=== PATIENT | male | born 1940 | race Caucasian/White ===

== ENCOUNTER 2017-01-08 04:35 | Observation (INO) | payer MEDICARE ==
[2017-01-08] VITALS (8 sets, daily range): BP systolic 123–158; BP diastolic 69–82; PULSE 65–75; RESP 16–18; TEMP 96.3–97.7; O2SAT 94–98
[~2017-01-08] VITALS: Ht 180.3 cm; Wt 106.5 kg
[~2017-01-08 04:35] MED LIST: ASPI81 PO; CALC600T34 PO; CARD8TAB6 PO; FISH1000 PO; GLYB2.5T3 PO; METHY10 PO; OMEP20CA5 PO; PRIN5TAB PO; ROSU40 PO; VITA500T10 PO
[2017-01-08] MEDS ORDERED: SODIUM CHLORIDE 0.9% FLUSH 5 ML FLUSH IVF PRN ×3 (06:30→09:00)
[2017-01-08] MEDS ORDERED: ASPIRIN 325 MG TAB PO ONE (06:30)
[2017-01-08] MEDS ORDERED: MORPHINE SULFATE 4 MG/ML INJ IV PUSH ONE (06:30)
[2017-01-08 06:43] LABS: AUTOMATED NEUTROPHIL # 7.5 TH/MM3 (1.8-7.7); BASOPHIL # 0.1 TH/MM3 (0-0.2); BASOPHIL % 0.7 % (0.0-2.0); EOSINOPHIL # 0.1 TH/MM3 (0-0.4); EOSINOPHIL % 1.3 % (0.0-4.0); HEMATOCRIT 47.8 % (39.0-51.0); HEMO FLAGS DIFF FINAL; LYMPH % 18.5 % (9.0-44.0); MEAN CELL VOLUME 91.8 FL (80.0-100.0); MEAN CORPUSCULAR HEMOGLOBIN 31.6 PG (27.0-34.0); MEAN CORPUSCULAR HGB CONC 34.4 % (32.0-36.0); MONO % 10.3 % (0.0-8.0); NEUT % 69.2 % (16.0-70.0); PLATELET COUNT 194 TH/MM3 (150-450); RED BLOOD COUNT 5.21 MIL/MM3 (4.50-5.90); RED CELL DISTRIBUTION WIDTH 13.6 % (11.6-17.2); WHITE BLOOD COUNT 10.9 TH/MM3 (4.0-11.0)
--- NOTE | 2017-01-08 06:43 | RADRPT ---
EXAM DATE/TIME: 01/08/2017 06:21 [facility] COMPARISON: CHEST SINGLE AP, December 17, 2013, 19:28. INDICATIONS : Chest pain. MEDICAL HISTORY : None. SURGICAL HISTORY : None. ENCOUNTER: Initial ACUITY: 1 day PAIN SCORE: 2/10 LOCATION: Left chest FINDINGS: A single view of the chest demonstrates the lungs to be symmetrically aerated without evidence of mas s, infiltrate or effusion. The cardiomediastinal contours are unremarkable. Osseous structures are intact. Calcified granuloma right midlung. CONCLUSION: No acute disease. Trey Michael MD on January 08, 2017 at 6:42 Board Certified Radiologist. This report was verified electronically.
--- NOTE | 2017-01-08 06:47 | PD ---
HPI Chief Complaint: Chest Pain Time Seen by Provider: 06:16 Travel History International Travel<30 days: No Contact w/Intl Traveler<30days: No Traveled to known affect area: No History of Present Illness HPI 76-year-old male arrives to the ER complaining of left-sided chest pain. Onset occurred at rest. He states it is mild. He has no shortness of breath. There is no radiation. He has a history of one stent. He takes no Plavix. Baby aspirin is listed on his formulary. No cough or fever lately. Duration a few hours. He follows with Dr. Ding. 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 PFSH Past Medical History Cancer: Yes (SKIN CANCERS ([place])) Cardiovascular Problems: Yes (2 STENTS) High Cholesterol: Yes Diabetes: Yes Patient Takes Glucophage: Yes Diminished Hearing: Yes ([place]) Glaucoma: No Hepatitis: No Hiatal Hernia: No Hypertension: Yes Thyroid Disease: No Past Surgical History Abdominal Surgery: No Cardiac Surgery: Yes (CARDIAC STENTS) Ear Surgery: No Endocrine Surgery: No Eye Surgery: No Genitourinary Surgery: No Gynecologic Surgery: No Oral Surgery: No Pacemaker: No Thoracic Surgery: No Other Surgery: Yes Social History Alcohol Use: No Tobacco Use: No Substance Use: No Allergies-Medications (Allergen,Severity, Reaction): Coded Allergies: No Known Allergies (Verified , 01/08/17) Reported Meds & Prescriptions Reported Meds & Active Scripts Active Reported Ritalin (Methylphenidate HCl) 10 Mg Tab 10 Mg PO DAILY@1600 Glyburide 2.5 Mg Tab 2.5 Mg PO DAILYAC Fish Oil 1,000 Mg Cap 1,000 Mg PO DAILY Calcium 600 Mg Tab 600 Mg PO Vitamin C (Ascorbic Acid) 500 Mg Tab 500 Mg PO DAILY Prilosec (Omeprazole) 20 Mg Capcr 20 Mg PO DAILY Aspirin 81 Mg Tab 81 Mg PO DAILY Crestor (Rosuvastatin Calcium) 40 Mg Tab 40 Mg PO DAILY Cardura (Doxazosin Mesylate) 8 Mg Tab 8 Mg PO DAILY Prinivil (Lisinopril) 5 Mg Tab 5 Mg PO DAILY Review of Systems Except as stated in HPI: all other systems reviewed are Neg Physical Exam Narrative GENERAL: 76-year-old male pleasant well-nourished well-developed SKIN: Warm and dry. HEAD: Atraumatic. Normocephalic. EYES: Pupils equal and round. No scleral icterus. No injection or drainage. ENT: No nasal bleeding or discharge. Mucous membranes pink and moist. NECK: Trachea midline. No JVD. CARDIOVASCULAR: Regular rate and rhythm. No murmur appreciated. No chest wall tenderness. RESPIRATORY: No accessory muscle use. Clear to auscultation. Breath sounds equal bilaterally. GASTROINTESTINAL: Abdomen soft, non-tender, nondistended. Hepatic and splenic margins not palpable. MUSCULOSKELETAL: No obvious deformities. No clubbing. No cyanosis. No edema. NEUROLOGICAL: Awake and alert. No obvious cranial nerve deficits. Motor grossly within normal limits. Normal speech. PSYCHIATRIC: Appropriate mood and affect; insight and judgment normal. Data Data Last Documented VS Vital Signs Date Time Temp Pulse Resp B/P Pulse Ox O2 Delivery O2 Flow Rate FiO2 01/08/17 06:40 16 96 Room Air 01/08/17 06:40 142/76 158/80 01/08/17 04:38 97.7 73 Vital signs reviewed Orders Electrocardiogram (01/08/17 ) Electrocardiogram (01/08/17 06:16) Basic Metabolic Panel (Bmp) (01/08/17 06:16) Ckmb (Isoenzyme) Profile (01/08/17 06:16) Complete Blood Count With Diff (01/08/17 06:16) Magnesium (Mg) (01/08/17 06:16) Prothrombin Time / Inr (Pt) (01/08/17 06:16) Act Partial Throm Time (Ptt) (01/08/17 06:16) Troponin I (01/08/17 06:16) Chest, Single Ap (01/08/17 06:16) Ecg Monitoring (01/08/17 06:16) Bilateral Bp Monitoring (01/08/17 06:16) Iv Access Insert/Monitor (01/08/17 06:16) Oximetry (01/08/17 06:16) Oxygen Administration (01/08/17 06:16) Aspirin (Aspirin) (01/08/17 06:30) Morphine Inj (Morphine Inj) (01/08/17 06:30) Sodium Chloride 0.9% Flush (Ns Flush) (01/08/17 06:30) MDM Medical Decision Making Medical Screen Exam Complete: Yes Emergency Medical Condition: Yes Medical Record Reviewed: Yes Differential Diagnosis NSTEMI, unstable angina, coronary vasospasm, PE, PTX, aortic dissection, pericarditis, myocarditis, endocarditis, PNA, esophageal disease, aneurysm, musculoskeletal etiologies, anxiety, cocaine/sympathomimetic abuse Narrative Course EKG reveals a sinus rhythm of [address] changes in inferior leads not consistent with STEMI Oncoming provider to follow up the results of blood work, re-examine and disposition patient appropriately. Chest pain center admission considered likely. Giuseppe Mcfadden MD Jan 08, 2017 06:47
[2017-01-08 06:52] LABS: APTT (PATIENT) 27.1 SEC (24.3-30.1); PROTHROMBIN TIME - PATIENT 11.4 SEC (9.8-11.6)
[2017-01-08] MEDS ORDERED: LISI-519 PO (07:08)
[2017-01-08] MEDS ORDERED: GLIM4TAB PO (07:08)
[2017-01-08] MEDS ORDERED: DOXA1TAB43 PO (07:10)
[2017-01-08] MEDS ORDERED: ROSU40 PO (07:10)
[2017-01-08] MEDS ORDERED: DONE5TAB7 PO (07:10)
[2017-01-08 07:12] LABS: ANION GAP 8 MEQ/L (5-15); BICARBONATE 24.2 MEQ/L (21.0-32.0); BLOOD UREA NITROGEN 24 MG/DL (7-18); CHLORIDE 105 MEQ/L (98-107); CREATINE KINASE 140 U/L (39-308); GLOMERULAR FILTRATION RATE 52 ML/MIN (>89); MAGNESIUM 2.4 MG/DL (1.5-2.5); POTASSIUM 4.7 MEQ/L (3.5-5.1); SODIUM (NA) 137 MEQ/L (136-145)
--- NOTE | 2017-01-08 07:16 | PD ---
Physical Exam Narrative Received sign out from previous team to follow up labs and likely chest pain center admission. 76yo M with PMH of NIDDM, HTN, HLD, CAD s/p cardiac stent 10 years ago here with left sided chest pain. Chest pain is intermittent and is now almost resolved. EKG showed Q wave III, aVF and TWI aVL. Pt given aspirin and morphine by previous team. Labs reviewed, no leukocytosis. Troponin negative. Glucose 141. BUN/creatinine elevated at 24/1.33 but this is at baseline compared to previous labs. CXR showed no acute disease. 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 Will admit to chest pain center for serial EKG and cardiac enzyme. Data Data Last Documented VS Vital Signs Date Time Temp Pulse Resp B/P Pulse Ox O2 Delivery O2 Flow Rate FiO2 01/08/17 06:40 16 96 Room Air 01/08/17 06:40 142/76 158/80 01/08/17 04:38 97.7 73 Orders Electrocardiogram (01/08/17 ) Basic Metabolic Panel (Bmp) (01/08/17 06:16) Ckmb (Isoenzyme) Profile (01/08/17 06:16) Complete Blood Count With Diff (01/08/17 06:16) Magnesium (Mg) (01/08/17 06:16) Prothrombin Time / Inr (Pt) (01/08/17 06:16) Act Partial Throm Time (Ptt) (01/08/17 06:16) Troponin I (01/08/17 06:16) Chest, Single Ap (01/08/17 06:16) Ecg Monitoring (01/08/17 06:16) Bilateral Bp Monitoring (01/08/17 06:16) Iv Access Insert/Monitor (01/08/17 06:16) Oximetry (01/08/17 06:16) Oxygen Administration (01/08/17 06:16) Aspirin (Aspirin) (01/08/17 06:30) Morphine Inj (Morphine Inj) (01/08/17 06:30) Sodium Chloride 0.9% Flush (Ns Flush) (01/08/17 06:30) CKMB (01/08/17 06:25) CKMB% (01/08/17 06:25) Admit Order (Ed Use Only) (01/08/17 07:16) Activity Bed Rest With Brp (01/08/17 07:16) Vital Signs (Adult) Q4H (01/08/17 07:16) Cardiac Rhythm .As Directed (01/08/17 07:16) ^ Notify Dr: Other .PRN (01/08/17 07:16) ^ Notify Dr. Parameters (01/08/17 07:16) Resp Oxygen Nasal Cannula (01/08/17 ) ^ Obtain (01/08/17 07:16) Sodium Chloride 0.9% Flush (Ns Flush) (01/08/17 07:30) Sodium Chloride 0.9% Flush (Ns Flush) (01/08/17 09:00) Needle Grinder / Telemetry ROGER.Q8H (01/08/17 07:16) Labs Laboratory Tests Test 01/08/17 06:25 White Blood Count 10.9 TH/MM3 Red Blood Count 5.21 MIL/MM3 Hemoglobin 16.5 GM/DL Hematocrit 47.8 % Mean Corpuscular Volume 91.8 FL Mean Corpuscular Hemoglobin 31.6 PG Mean Corpuscular Hemoglobin 34.4 % Concent Red Cell Distribution Width 13.6 % Platelet Count 194 TH/MM3 Mean Platelet Volume 9.2 FL Neutrophils (%) (Auto) 69.2 % Lymphocytes (%) (Auto) 18.5 % Monocytes (%) (Auto) 10.3 % Eosinophils (%) (Auto) 1.3 % Basophils (%) (Auto) 0.7 % Neutrophils # (Auto) 7.5 TH/MM3 Lymphocytes # (Auto) 2.0 TH/MM3 Monocytes # (Auto) 1.1 TH/MM3 Eosinophils # (Auto) 0.1 TH/MM3 Basophils # (Auto) 0.1 TH/MM3 CBC Comment DIFF FINAL Differential Comment Prothrombin Time 11.4 SEC Prothromb Time International 1.0 RATIO Ratio Activated Partial 27.1 SEC Thromboplast Time Sodium Level 137 MEQ/L Potassium Level 4.7 MEQ/L Chloride Level 105 MEQ/L Carbon Dioxide Level 24.2 MEQ/L Anion Gap 8 MEQ/L Blood Urea Nitrogen 24 MG/DL Creatinine 1.33 MG/DL Estimat Glomerular Filtration 52 ML/MIN Rate Random Glucose 141 MG/DL Calcium Level 9.2 MG/DL Magnesium Level 2.4 MG/DL Total Creatine Kinase 140 U/L Creatine Kinase MB 1.6 NG/ML Troponin I LESS THAN 0.02 NG/ML MDM Supervised Visit with MACIE: No Diagnosis Primary Impression: Chest pain Qualified Code: R07.9 - Chest pain, unspecified type Admitting Information Admitting Physician Requests: Batsheva Jiang DO Jan 08, 2017 07:16
[2017-01-08 07:24] LABS: CKMB 1.6 NG/ML (0.5-3.6)
[2017-01-08] MEDS ORDERED: NITROGLYCERIN 0.4 MG SL 25 TABS/BTL SL PRN (09:00)
[2017-01-08] MEDS ORDERED: ASPIRIN 325 MG TAB PO SCH (09:00)
[2017-01-08] MEDS ORDERED: ACETAMINOPHEN 500 MG CPLT PO PRN (09:00)
[2017-01-08] MEDS ORDERED: SODIUM CHLORIDE 0.9% FLUSH 5 ML FLUSH IVF SCH ×2 (09:00)
[2017-01-08] MEDS ORDERED: ONDANSETRON HCL 4 MG/2 ML VIAL IV PRN (09:00)
[2017-01-08] MEDS ORDERED: amLODIPine BESYLATE 5 MG TAB PO ONE (09:15)
[2017-01-08 10:24] LABS: CREATINE KINASE 100 U/L (39-308)
[2017-01-08] MEDS ORDERED: ATORVASTATIN 80 MG TAB PO SCH (14:00)
[2017-01-08] MEDS ORDERED: LISINOPRIL 5 MG TAB PO SCH (14:00)
[2017-01-08] MEDS ORDERED: DOXAZOSIN MESYLATE 4 MG TAB PO SCH (14:00)
--- NOTE | 2017-01-08 14:57 | HHI.HP ---
[facility] Primary Care Physician Juan Dign MD Chief Complaint Chest pain History of Present Illness 76-year-old man with known diabetes, hypertension, hyperlipidemia, and CAD. States he was awoken at 3:30 this morning with chest pain. Location left anterior chest, no radiation, severity was a 6 out of 10, currently he continues to have pain 6 out of 10 this pain has not changed in intensity. Characteristic is "soreness" no associated symptoms, no precipitating or relieving factors. He denies ever having chest pain in the past. No recent illness or known trauma. Review of Systems General: No fatigue,weakness, fever, chills, or recent illness change in appetite HEENT: No NEIL, no vision changes, no nasal congestion or drainage, no dysphasia CV: CP has stated above. No Palpitations, intermittent leg pain, dizziness RESP: No SOB, cough, wheeze, hemoptysis, asthma, no recent illness or upper respiratory infection GI: No nausea or vomiting, bowel changes, diarrhea, constipation, pain, distention, melena, blood in the stool. No change in appetite, no unintentional weight gain or weight loss, reports a good appetite : No dysuria, urgency, frequency, hematuria, or history of kidney stones EXT: No lower leg edema, no parathesias MS: No discomfort or change in ROM NEURO: Mild change in memory his primary care provider is monitoring this, no dizziness, difficulty with balance, LOC, motor/sensory deficits PSYCH: No anxiety, depression SKIN: No rashes, no concerning lesions Past Family Social History Allergies: Coded Allergies: No Known Allergies (Verified , 01/08/17) Past Medical History Diabetes, hypertension, hyperlipidemia, one cardiac stent placed 10 years ago, dementia Past Surgical History None Reported Medications Lisinopril 5 mg daily Aricept 5 mg daily Crestor 40 mg daily at bedtime Multivitamin Vitamin E daily Doxazosin 8mg daily Family History Father from massive heart attack at age 50. Mother at age 48 from breast cancer. He is an only child. Social History He is a lifelong nonsmoker, denies alcohol or illegal drug use. He has hypertension, diabetes, hyperlipidemia although takes medication for all of the above. 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 Physical Exam Vital Signs Vital Signs Date Time Temp Pulse Resp B/P Pulse Ox O2 Delivery O2 Flow Rate FiO2 01/08/17 10:46 66 18 148/73 98 Nasal Cannula 2 01/08/17 08:50 98 Nasal Cannula 2.00 01/08/17 06:40 16 96 Room Air 01/08/17 06:40 96 Room Air 01/08/17 06:40 142/76 158/80 01/08/17 04:38 97.7 73 16 150/82 94 Physical Exam GENERAL: Alert WN, WD, NAD, pleasant HEAD: NC, AT EYES: Sclera clear, conjunctiva without injection, pupils equal and round ENT: Mucous membranes pink and moist, no nasal discharge or bleeding NECK: Supple, no masses, trachea midline CV: RRR, without murmur, rub, gallop, no JVD, S1-S2 no S3-S4. No carotid bruits RESP: Clear lungs throughout bilateral, no crackles, wheeze, rhonchi, symmetrical chest rise, nonlabored, able to speak in full sentences ABD: Soft, NT, ND, no masses, positive bowel tones BACK: No CVAT, no scoliosis EXT: Pulses +24, no dependent edema MS: Normal tone 4 extremities, nontender, no obvious deformities, full range of motion NEURO: CN II through CN XII grossly intact, motor strength 5/5 PSYCH: A+O 3, pleasant affect, appropriate speech, appropriate mood and affect , insight and judgment SKIN: Normal turgor, normal texture, no lesions, no rashes, warm and dry Laboratory Laboratory Tests Test 01/08/17 01/08/17 06:25 09:27 White Blood Count 10.9 Red Blood Count 5.21 Hemoglobin 16.5 Hematocrit 47.8 Mean Corpuscular Volume 91.8 Mean Corpuscular Hemoglobin 31.6 Mean Corpuscular Hemoglobin 34.4 Concent Red Cell Distribution Width 13.6 Platelet Count 194 Mean Platelet Volume 9.2 Neutrophils (%) (Auto) 69.2 Lymphocytes (%) (Auto) 18.5 Monocytes (%) (Auto) 10.3 Eosinophils (%) (Auto) 1.3 Basophils (%) (Auto) 0.7 Neutrophils # (Auto) 7.5 Lymphocytes # (Auto) 2.0 Monocytes # (Auto) 1.1 Eosinophils # (Auto) 0.1 Basophils # (Auto) 0.1 CBC Comment DIFF FINAL Differential Comment Prothrombin Time 11.4 Prothromb Time International 1.0 Ratio Activated Partial 27.1 Thromboplast Time Sodium Level 137 Potassium Level 4.7 Chloride Level 105 Carbon Dioxide Level 24.2 Anion Gap 8 Blood Urea Nitrogen 24 Creatinine 1.33 Estimat Glomerular Filtration 52 Rate Random Glucose 141 Calcium Level 9.2 Magnesium Level 2.4 Total Creatine Kinase 140 100 Creatine Kinase MB 1.6 Troponin I LESS THAN 0.02 LESS THAN 0.02 Result Diagram: 01/08/1762401/08/17624 Imaging Last Impressions Chest X-Ray 01/08/17615 Signed Impressions: Service Date/Time: Sunday, January 08, 2017 06:21 - CONCLUSION: No acute disease. Trey Michael MD Assessment and Plan Assessment and Plan #1 Chest pain-patient has been admitted to the chest pain center he will be ruled out with 3 sets of EKGs and cardiac enzymes. She was seen and evaluated by Dr. Ashley Bernardo. Ham Sawyer discussed with patient and his whom is at bedside that the next step would be for him to have a chemical stress test. He is agreeable to this plan of care. Naturally if his chemical stress test is unremarkable he will be later discharged this evening. #2 Hypertension-amlodipine 5 mg 1 dose. Will continue to monitor patient's blood pressure. Discussed the likelihood with patient and his of possibly going home with a blood pressure medication. Discussed the importance of follow -up with primary care provider and to keep a blood pressure log and to take with them to next primary care appointment. Tracie Gonzalez Jan 08, 2017 14:57 Tracie Gonzalez Jan 08, 2017 14:57
[2017-01-08 15:07] LABS: CREATINE KINASE 183 U/L (39-308)
[2017-01-08] MEDS ORDERED: REGADENOSON INJ 0.4 MG/5 ML SYR ONE (15:07)
[2017-01-08 15:19] LABS: CKMB 1.2 NG/ML (0.5-3.6)
--- NOTE | 2017-01-08 16:24 | RADRPT ---
EXAM DATE/TIME: 01/08/2017 14:34 [facility] COMPARISON: No previous studies available for comparison. INDICATIONS : Left chest pain for 1 day. Angina. DOSE: 35.0 mCi Tc99m Myoview at stress. 10.9 mCi Tc99m Myoview at rest. 0.4 mg Lexiscan STRESS SYMPTOMS: Nausea. EJECTION FRACTION: 63% MEDICAL HISTORY : Hypertension. Diabetes mellitus type 2. SURGICAL HISTORY : Coronary artery stent. Total knee replacement, left. Total knee replacement, right. ENCOUNTER: Initial ACUITY: 1 day PAIN SCALE: 3/10 LOCATION: Left chest TECHNIQUE: The patient underwent pharmacologic stress with infusion of prescribed dose. Continuous ECG tracing was monitored during stress. Gated SPECT imaging was performed after stress and conventional SPECT i maging was performed at rest. The examination was performed on a SPECT/CT scanner, both attenuation and non-corrected datasets were reviewed. FINDINGS: The gated Cine loop images demonstrate no focal wall motion abnormality. The left ventricular ejecti on fraction is calculated at 63%. The cardiac SPECT stress and rest images demonstrate no fixed or reversible defects to suggest infarc t or ischemia. CONCLUSION: No infarct, ischemia, or focal wall motion abnormality. Left ventricular ejection fraction is calcula anita at 63%. RISK CATEGORY: Low risk (less than 1% annual mortality rate). Danny Magallanes MD on January 08, 2017 at 16:18 Board Certified Radiologist. This report was verified electronically.
--- NOTE | 2017-01-08 16:44 | HHI.DCPOC ---
Discharge Care Plan Diagnosis: (1) Atypical chest pain (2) Hypertension Goals to Promote Your Health * To prevent worsening of your condition and complications * To maintain your health at the optimal level Directions to Meet Your Goals Take your medications as prescribed Follow your dietary instruction Follow activity as directed Keep your appointments as scheduled Take your immunizations and boosters as scheduled If your symptoms worsen call your PCP, if no PCP go to Urgent Care Center or Emergency Room Smoking is Dangerous to Your Health. Avoid second hand smoke Call the 24-hour hour crisis hotline for domestic abuse at Tracie Gonzalez Jan 08, 2017 16:44
--- NOTE | 2017-01-08 16:51 | EKG ---
Date Performed: 01/08/2017 Time Performed: 10:40:13 PTAGE: 76 years EKG: Sinus rhythm WITH FIRST DEGREE AV BLOCK MODERATE INTRAVENTRICULAR CONDUCTION DELAY NONSPECIFIC T-WAVE ABNORMALITY ABNORMAL ECG Since PREVIOUS TRACING , no significant change noted PREVIOUS TRACIN01/08/2017 04.45 DOCTOR: Ashley Bernardo Interpretating Date/Time 01/08/2017 16:51:04
--- NOTE | 2017-01-08 16:54 | EKG ---
Date Performed: 01/08/2017 Time Performed: 04:45:14 PTAGE: 76 years EKG: Sinus rhythm INFERIOR MYOCARDIAL INFARCTION ABNORMAL ECG Since PREVIOUS TRACING , no significant change noted PREVIOUS TRACIN12/17/2013 19.17 DOCTOR: Ashley Bernardo Interpretating Date/Time 01/08/2017 16:53:25
[2017-01-08] MEDS ORDERED: AMLO2.5T PO (16:57)
--- NOTE | 2017-01-09 16:10 | TR ---
Date Performed: 01/08/2017 Time Performed: 15:13:16 DOCTOR: Nacho Bryan DRUG LIST: CLINICAL HISTORY: ANGINA REASON FOR TEST: Angina REASON FOR ENDING: OBSERVATION: CONCLUSION: Lexiscan stress test was performed under standard four minute protocol. [place] e was injected one minute prior to ending the test. No electrocardiographic abormalities were present to suggest ischemia. Nuclear imaging and interpretation are pending. COMMENTS:
== END 2017-01-08 18:13 | disposition home or self-care (01) ==
LOC: NEPE 04:35 → NEDA 07:24 → NEPHCDU 15:25
PROVIDERS: ADMIT Internal Medicine Interventional Cardiology; ATTEND Internal Medicine Interventional Cardiology
DX: R07.89 Other chest pain (principal); I10 Essential (primary) hypertension; E78.00 Pure hypercholesterolemia, unspecified; E11.9 Type 2 diabetes mellitus without complications; I25.10 Atherosclerotic heart disease of native coronary artery without angina pectoris; Z95.5 Presence of coronary angioplasty implant and graft; Z79.82 Long term (current) use of aspirin; Z85.820 Personal history of malignant melanoma of skin; Z82.49 Family history of ischemic heart disease and other diseases of the circulatory system; Z80.3 Family history of malignant neoplasm of breast
CPT/HCPCS: 71010; 78452; 80048; 82550; 82552; 83735; 84484; 85025; 85610; 85730; 93005; 93017; 96374; 99285; A9502; G0378; J2270; J2785

== ENCOUNTER 2018-03-19 09:45 | Day surgery (SDC) | payer MEDICARE ==
[~2018-03-19] VITALS: Ht 177.8 cm; Wt 106.8 kg
[~2018-03-19 09:45] MED LIST changes: +AMLO2.5T PO; -ASPI81 PO; -CALC600T34 PO; -CARD8TAB6 PO; +DONE5TAB7 PO; +DOXA1TAB43 PO; -FISH1000 PO; +GLIM4TAB PO; -GLYB2.5T3 PO; +LISI-519 PO; -METHY10 PO; -OMEP20CA5 PO; -PRIN5TAB PO; -VITA500T10 PO
[2018-03-19] MEDS ORDERED: VITA200C3 PO (10:43)
[2018-03-19] MEDS ORDERED: MULTTAB67 PO (10:43)
[2018-03-19 10:45] VITALS: BP 144/70; PULSE 55; RESP 18; TEMP 97.6; O2SAT 95
[2018-03-19] MEDS ORDERED: MIDAZOLAM HCL 2 MG/2 ML VIAL ONE ×2 (12:10→12:35)
[2018-03-19 13:00] VITALS: BP 151/78; PULSE 81; RESP 16; TEMP 97.7; O2SAT 94
[2018-03-19 13:15] VITALS: BP 131/78; PULSE 57; RESP 18; O2SAT 93
[2018-03-19 13:45] VITALS: BP 142/65; PULSE 56; RESP 18; O2SAT 94
[2018-03-19 14:15] VITALS: BP 134/72; PULSE 58; RESP 18; O2SAT 96
[2018-03-19] MEDS ORDERED: oxyCODONE/ACETAMINOPHEN 5 MG/325 MG TAB PO PRN (14:30)
[2018-03-19 14:45] VITALS: BP 129/74; PULSE 82; RESP 18; O2SAT 93
--- NOTE | 2018-03-19 15:33 | RADRPT ---
EXAM DATE/TIME: 03/19/2018 12:28 [facility] COMPARISON: No previous studies available for comparison. INDICATIONS : Mediastinal mass. SEDATION TIME: minutes BIOPSY SITE: Mediastinum MEDICATION(S): 1.) 2.5 mg midazolam (Versed) IV 2.) 125 mcg fentanyl (Sublimaze) IV DEVICE(S): 1.) 16 gauge Temno core biopsy needle MEDICAL HISTORY : Hypertension. Diabetes mellitus type 2. Carcinoma, bladder. SURGICAL HISTORY : None. ENCOUNTER: Initial ACUITY: 1 day PAIN SCORE: 0/10 LOCATION: chest A total of two core specimen(s) were obtained and sent to the laboratory for pathologic evaluation. PROCEDURE: 1. CT guided mediastinal biopsy. 2. Conscious sedation with continuous EKG and oximetry monitoring. 3. EKG and oximetry remained stable throughout the procedure. Prior to the procedure informed consent was obtained. Any appropriate prior imaging studies were rev iewed. Using automated exposure control and adjustment of the mA and/or kV according to patient size, radiat ion dose was kept as low as reasonably achievable to obtain optimal diagnostic quality images. DICOM format image data is available electronically for review and comparison. The site was prepped in a sterile fashion. Full sterile technique was used, including cap, mask, haylie rile gloves and gown and a large sterile sheet. Hand hygiene and 2% chlorhexidine and/or betadine/al cohol prep was utilized per protocol for cutaneous antisepsis. The skin and subcutaneous tissues wer e infiltrated with local anesthetic solution. With CT guidance the previously identified target was localized. Biopsy was performed using the presc ribed needle as above. Adequate hemostasis was obtained with compression at the puncture site. Follow-up CT scan reveals no hemorrhage. The patient tolerated the procedure well and there were no complications. The patient was returned to the Radiology Outpatient Unit in stable condition. CONCLUSION: Uncomplicated CT guided biopsy. Kory Presley MD on March 19, 2018 at 15:30 Board Certified Radiologist. This report was verified electronically.
== END 2018-03-19 15:20 | disposition home or self-care (01) ==
LOC: HRAD 09:45 → HRIP 09:46 → HRAD 15:20
PROVIDERS: ATTEND Internal Medicine Hematology & Oncology
DX: R22.2 Localized swelling, mass and lump, trunk (principal); I10 Essential (primary) hypertension; E11.9 Type 2 diabetes mellitus without complications; Z85.51 Personal history of malignant neoplasm of bladder
CPT/HCPCS: 32405; 77012; 88307; 88341; 88342; 99152; 99153; J2250; J3010

== ENCOUNTER 2018-04-22 07:30 | Inpatient (IN) | payer MEDICARE ==
[~2018-04-22] VITALS: Ht 179.1 cm; Wt 103.0 kg
[~2018-04-22 07:30] MED LIST changes: -AMLO2.5T PO; -DONE5TAB7 PO; -LISI-519 PO; +MULTTAB67 PO; +VITA200C3 PO
[2018-05-06] MEDS ORDERED: METO25TA3 PO (11:50)
[2018-05-06] MEDS ORDERED: CALC1TAB87 PO (11:50)
[2018-05-06] MEDS ORDERED: DONE10TA7 PO (11:50)
[2018-05-06] MEDS ORDERED: LISI10TA3 PO (11:50)
[2018-05-06] MEDS ORDERED: VITA200C3 PO (11:50)
[2018-05-06] MEDS ORDERED: OMEG100046 PO (11:50)
[2018-05-09] VITALS (15 sets, daily range): BP systolic 122–156; BP diastolic 39–89; PULSE 68–95; RESP 18; TEMP 97.4–98; O2SAT 93–96
[2018-05-09] MEDS ORDERED: SODIUM CHLORID 0.9% 500 ML IV PRN (06:15)
[2018-05-09] MEDS ORDERED: METOPROLOL TARTRATE 25 MG TAB PO PRN (06:15)
[2018-05-09] MEDS ORDERED: ceFAZolin 2 GM PREMIX 50 ML IV SCH (06:15)
[2018-05-09] MEDS ORDERED: DEXTROSE 50% IN WATER 50 ML VIAL(D50) IV PUSH PRN ×2 (06:15→10:00)
[2018-05-09] MEDS ORDERED: LACTATED RINGER'S 1000 ML IV PRN (06:15)
[2018-05-09] MEDS ORDERED: CHLORHEXIDINE GLUCONATE 4% SOLN 120 ML BTL TOPICAL SCH (06:15)
[2018-05-09] MEDS ORDERED: CHLORHEXIDINE GLUCONATE 2 % 1 PACK (2 CLOTHS) TOPICAL PRN (06:15)
[2018-05-09] MEDS ORDERED: SODIUM CHLORIDE 0.9% FLUSH 10 ML FLUSH IV FLUSH PRN ×3 (06:15→10:00)
[2018-05-09] MEDS ORDERED: METOPROLOL TARTRATE 25 MG TAB PO SCH (06:15)
[2018-05-09] MEDS ORDERED: POVIDONE IODINE 5% (ANTISEPSIS KIT) 4 APPLICATIONS EACH NARE PRN (06:15)
[2018-05-09] MEDS ORDERED: BUPIVACAINE HCL PF 0.5% 10 ML VIAL ONE (06:24)
[2018-05-09] MEDS ORDERED: fentaNYL CITRATE 250 MCG/5 ML AMP ONE ×2 (06:45→06:46)
[2018-05-09] MEDS ORDERED: MIDAZOLAM HCL 5 MG/5 ML VIAL ONE (06:45)
[2018-05-09] MEDS ORDERED: KETAMINE HCL 500 MG/10 ML VIAL ONE (06:56)
[2018-05-09] MEDS ORDERED: CEFAZOLIN 500 MG in NS IRR BTL 500 ML IRRIGATION SCH (07:30)
[2018-05-09] MEDS ORDERED: INSULIN REGULAR 100 UNITS in NS 100 ML IV PRN (07:30)
[2018-05-09] MEDS ORDERED: ceFAZolin 2 GM PREMIX 50 ML ONE (07:51)
[2018-05-09] MEDS ORDERED: VANCOMYCIN HCL 1000 MG VIAL ONE (07:51)
[2018-05-09] MEDS ORDERED: methylPREDNISolone SOD SUCC 125 MG/2 ML VIAL ONE (07:51)
[2018-05-09] MEDS ORDERED: HEPARIN SODIUM - SQ 10,000 UNITS/ML VIAL ONE (07:51)
[2018-05-09] MEDS ORDERED: LACTATED RINGER'S 1000 ML INJ 500 ML IV PRN (09:51)
[2018-05-09] MEDS ORDERED: CALCIUM CHLORIDE INJ 1 GM in SODIUM CHLORIDE 0.9% INJ 100 ML IV PRN (10:00)
[2018-05-09] MEDS ORDERED: RESP: ALBUTEROL 2.5 MG/IPRATROPIUM 0.5 MG NEB (PRN) NEB (10:00)
[2018-05-09] MEDS ORDERED: MAGNESIUM SULFATE INJ 2 GM in SODIUM CHLORIDE 0.9% INJ 100 ML IV PRN ×4 (10:00)
[2018-05-09] MEDS ORDERED: INSULIN REGULAR (IV INFUSION) 100 UNITS in SODIUM CHLORIDE 0.9% INJ 99 ML IV PRN (10:00)
[2018-05-09] MEDS ORDERED: ACETAMINOPHEN 650 MG SUPP RECTAL PRN (10:00)
[2018-05-09] MEDS ORDERED: ALBUMIN 5% INJ 250 ML IV PRN (10:00)
[2018-05-09] MEDS ORDERED: hydrALAZINE HCL 20 MG/ML VIAL IV PUSH PRN (10:00)
[2018-05-09] MEDS ORDERED: RESP: RACEPINEPHRINE 2.25% 0.5 ML NEB NEB PRN (10:00)
[2018-05-09] MEDS ORDERED: SODIUM BICARBONATE 8.4% SOLN 50 MEQ/50 ML VIAL IV PUSH PRN ×2 (10:00)
[2018-05-09] MEDS ORDERED: CALCIUM CHLORIDE 10% 1 GRAM/10 ML VIAL IV PUSH PRN (10:00)
[2018-05-09] MEDS ORDERED: METOPROLOL TARTRATE 5 MG/5 ML VIAL IV PUSH PRN (10:00)
[2018-05-09] MEDS ORDERED: POTASSIUM CHLOR 20 MEQ PREMIX 100 ML IV PRN ×3 (10:00)
[2018-05-09] MEDS ORDERED: POTASSIUM CHLORIDE 20 MEQ CONTROLLED RELEASE TAB PO PRN ×2 (10:00)
--- NOTE | 2018-05-09 10:07 | PD.OP ---
cc: Sharon Beckham MD Operative Report Date of Surgery: May 09, 2018 Preoperative Diagnosis: (1) Mediastinal mass Postoperative Diagnosis: same Procedure: Median sternotomy for resection anterior mediastinal mass Anesthesia: Dr. Murphy Surgeon: Sharon Beckham Transit Bus Driver(s): [place] Operation and Findings: The risks, benefits, complications, treatment options, and expected outcomes were discussed with the patient. The possibilities of reaction to medication, pulmonary aspiration, perforation of viscus, bleeding, recurrent infection, the need for additional procedures, failure to diagnose a condition, and creating a complication requiring transfusion or operation were discussed with the patient. The patient concurred with the proposed plan, giving informed consent. The site of surgery properly noted/marked. The patient was taken to Operating Room, identified as Arnoldo Beckett and the procedure verified as median sternotomy for resection of mediastinal mass. A Time Out was held and the above information confirmed. Standard monitoring lines and Main catheter were placed. General anesthesia was induced. The patient was prepped and draped in a sterile fashion. A median sternotomy was performed and electrocautery was used to obtain hemostasis. 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 The tumor was involved with multiple aberrant blood vessels which were ligated and divided with 2-0 silk ties as they were encountered. A plane was developed anterior and to the right side of the chest anterolaterally and posteriorly. The mass extended into the left chest and the pleura and left lung were firmly adherent to the tumor. Some pleura was resected with the mass, but the lung peeled off and was not grossly involved. The mass was excised en bloc and submitted to Pathology. I discussed the patient's histroy with Dr. Groves by telephone. The mediastinum was examined for hemostasis and the area copiously irrigated. Wound and sternum was checked for hemostasis which was obtained using electrocautery. A 32 [place] left pleural chest tube was placed and secured to the skin with 0 silk suture. The sternum was closed with stainless steel wire. The fascia was closed with 1. PDS. The subcutaneous tissue was closed using a running 2-0 Vicryl suture. The skin was closed with 4-0 Monocryl. Sterile dressings were placed. At the end of the operation, all sponge, instruments, and needle counts were correct. The patient was transferred to the CICU in stable condition. Findings: 10 x 7 x 7 anterior mediastinal mass involving left pleura and adherent to left lung Drain: pleural x 1 Specimens: mediastinal amss Complications: none Disposition: to CVICU in stable condition Sharon Beckham MD May 09, 2018 10:07
[2018-05-09] MEDS ORDERED: ONDANSETRON ODT 4 MG TAB PO PRN (10:15)
[2018-05-09] MEDS ORDERED: Post-op Orders (for Pharmacy) OTHER ONE (10:33)
[2018-05-09] MEDS: ACETAMINOPHEN 1000 MG/100 ML 100 ML IV SCH ×3 (11:31→23:30)
--- NOTE | 2018-05-09 11:34 | RADRPT ---
EXAM DATE: 05/09/2018 11:28 AM EDT AGE/SEX: 77 years / Male INDICATIONS: Post op CABG. CLINICAL DATA: This is the patient's initial encounter. Patient reports that signs and symptoms have been present for 1 day and indicates a pain score of 8/10. MEDICAL/SURGICAL HISTORY: Cardiovascular disease. CABG. COMPARISON: [facility] [place], CHEST SINGLE AP, 01/08/2017. . FINDINGS: Right neck sheath and central catheter are present in good position. A midline chest tube is noted. T here is slight perihilar and basilar parenchymal opacity which may be mild edema cardiac contours are grossly satisfactory. Sternotomy wires are present. CONCLUSION: Satisfactory postop appearance Electronically signed by: Kory Presley MD 05/09/2018 11:33 AM EDT
[2018-05-09] MEDS: oxyCODONE/ACETAMINOPHEN 5 MG/325 MG TAB PO PRN (11:42)
[2018-05-09] MEDS ORDERED: PROPOFOL 200 MG/20 ML AMP IV ONE (12:00)
[2018-05-09] MEDS ORDERED: NORMOSOL R INJ 3,000 ML IV ONE (12:00)
[2018-05-09] MEDS ORDERED: SUCCINYLCHOLINE CHLORIDE 100 MG/5 ML SYRINGE IV PUSH ONE (12:00)
[2018-05-09] MEDS ORDERED: DEXAMETHASONE SOD PHOS 4 MG/ML VIAL IV ONE (12:00)
[2018-05-09] MEDS ORDERED: PHENYLEPH/NS 1000 MCG/10 ML SYR IV ONE (12:00)
[2018-05-09] MEDS ORDERED: LIDOCAINE HCL 1% PF 5 ML SYRINGE OTHER ONE (12:00)
[2018-05-09] MEDS ORDERED: LACTATED RINGER'S 1000 ML INJ 2,000 ML IV ONE (12:00)
[2018-05-09] MEDS ORDERED: VECURONIUM BROMIDE 20 MG VIAL IV ONE (12:00)
[2018-05-09] MEDS ORDERED: GLYCOPYRROLATE 1 MG/5 ML SYRINGE IV PUSH ONE (12:00)
[2018-05-09] MEDS ORDERED: ONDANSETRON HCL 4 MG/2 ML VIAL IV PUSH ONE (12:00)
[2018-05-09] MEDS ORDERED: ePHEDrine/NS 25 MG/5 ML SYRINGE IV ONE (12:00)
--- NOTE | 2018-05-09 12:13 | PD.CAR.PN ---
CVT Progress Note Subjective/Hospital Course: 77/ male , hx of malignant melanoma , presented to his PCP with c/o of back pain and fatigue. He underwent imaging studies and was found to have a large anterior mediastinal mass other PMH: CAD, s/p PCI stent , DM, HTN, HLP dementia pt was electively admitted for surgery 05/09 surgery: Median sternotomy for resection anterior mediastinal mass 10 x 7 x 7 anterior mediastinal mass involving left pleura and adherent to left lung Objective: Vital Signs Date Time Temp Pulse Resp B/P (MAP) Pulse Ox O2 Delivery O2 Flow Rate FiO2 05/09/18 10:38 93 Simple Mask 10.00 05/09/18 06:13 97.8 67 18 153/87 (109) 97 (1) median sternotomy (2) Mediastinal mass (3) Hx of coronary artery disease (4) Atypical chest pain (5) Hypertension (6) Dementia Yasmine Ventura May 09, 2018 12:13
--- NOTE | 2018-05-09 12:20 | HHI.FF ---
Face to Face Verification Diagnosis: (1) Mediastinal mass (2) Dementia (3) Hypertension (4) Hx of coronary artery disease (5) median sternotomy Home Health Nursing Order: Medication education-adverse effect Wound care and dressing changes Nursing assessment with vital signs Instructions: Heart and Vascular Surgery patients *Special attention to sternal dressing Mandatory frequency Assess and evaluation, 4 days in a row The next week 3X week 2 times a week for 4 weeks 1 time a week for 5 weeks Schedule Heart and Vascular patients for full 60 day certification period Initial visit Review Open Heart Surgery Discharge Instructions (Sternal precautions, Activity, Elastic hose, Incision care, Driving, Incentive spirometry, Smoking, [place], Work and other) Need Betadine to paint incision Medication reconciliation Importance of follow up care/ check on appointments Make calendar record temperature daily When to call [facility] [place] nurse, review instructions, phone list Incentive Spirometry, demonstration Visit 1- Begin discharge instruction for patient family and/ or caregiver using teach back method- Signs and symptoms of infection Disease characteristics Medicines and side effects Foods and nutrition/ appetite Infection control/ hand washing/ hygiene Visit 2- Continue teaching Discharge instructions- include additional information on smoking cessation , sternal dressing (sternal vac) Visit 3- Continue teaching- Cough and deep breathing, incision monitoring. Choose my plate Visit 4- Continue teaching- Discuss limitations Discuss how they are feeling Discuss progress toward goals Remaining visits- continue teaching and monitoring For any questions please call : Saturday 8am-5pm Heart & Vascular Surgery Office ( Dr. Aguirre & Dr. Beckham), After Hours / Nights (5pm -8am) Weekends and Holidays Please call [facility] Cardiac Intermediate Care Unit (CIC) Charge Nurse PREVENA Single Use Negative Wound Therapy System Caregiver Instruction Sheet 1. A Prevena dressing system was applied to the chest incision during surgery , to promote wound healing. It works via a suction device (negative pressure wound therapy) to remove low to moderate levels of exudate (drainage) and infectious materials. We recommend that the device stay in place for up to seven days, from day of surgery. 2. Day of Surgery___/07/19 Day of Removal ___05/16/18 3. The dressing should only be removed by a health transitions rn care coordinator. Please arrange removal of device to coincide with Home Health visit and or with Nursing staff at Rehab 4. If skin reddening or irritation of skin occurs, or excessive drainage, please notify the Cardiovascular Surgeons office at [phone]. 5. Light showering is permissible; however the pump should be disconnected and placed in safe location, where it will not get wet. The dressing should not be exposed to direct spray or submerged in water. No bath tub / shower only. Ensure the end of the tubing attached to the dressing is facing down so that water does not enter the top of the tube. 6. To remove Prevena dressing: press purple button to turn off device / remove the suction. Then disconnect the tubing from the pump. The fixation strips should be stretched away from the skin and the dressing lifted at one corner and peeled back until it has been fully removed. 7. After removal, it is ok to shower daily using liquid dial soap and clean wash cloth, rinse and pat dry, and leave incision open to air dry. For any concerns regarding Prevena dressing, and or wounds, please contact Ivy Mejias, patient navigator at [phone] or notify the Cardiovascular Surgeons office at [phone]. Incentive spirometry Q1 hr x 10, while awake, also use acapella device hourly whole awake Sternal Breast Bone Precautions: NO pushing or pulling, ( pt must use sternal pillow to support chest with all activities and with coughing ( takes up to 3 months breast bone to heal ) All females to wear sternal bra , launder as needed Daily incision care: ok to shower daily, no tub bath. Wash all incisions with liquid dial soap, clean wash cloth to each site, rinse and pat dry. Observe for any signs of infection, such as drainage which is dark yellow, bryan, green or foul smelling. Immediately report to the surgeon any drainage from the chest incision, or legs, and for any abnormal drainage from the chest tube sites. Notify surgeon if any temp >101.5 degrees F. When specialty dressing removed/ or if you do not have one, continue to shower daily as above, then rinse and pat incision dry and paint with betadine daily x 5 days. Allow steri strips to fall off if you have any. Avoid lotions, creams, salves, oils, etc. for the first month Please see attached forms for additional instructions regarding post Open Heart specialty wound vacuum dressings. CHAVA or Prevena , Dressing to be removed by Nursing staff on ___05/16/18____ F/U appointment: as per DC instructions: PCP in 2 weeks, CV surgeon 2 weeks, [facility] Caulker 3-4 weeks For any questions regarding incisions/ dressing / meds / post op care or above Symptoms, Saturday 8am-5pm Heart & Vascular Surgery Office ( Dr. Aguirre & Dr. Beckham), After Hours / Nights (5pm -8am) Weekends and Holidays Please call [facility] Cardiac Intermediate Care Unit (CIC) Charge Nurse I have seen patient Arnoldo Becktet on 05/09/18. My clinical findings support the need for the requested home health care services because: Deconditioned w/ increased weakness I certify that my clinical findings support that this patient is homebound because: Post-op weakness Yasmine Ventura May 09, 2018 12:20
[2018-05-09] MEDS: RESP: ALBUTEROL 2.5 MG/IPRATROPIUM 0.5 MG NEB (SCH) NEB ×2 (17:31→22:20)
[2018-05-09] MEDS: MUPIROCIN 2% OINT 22 GM TUBE EACH NARE SCH (21:00)
[2018-05-09] MEDS: SODIUM CHLORIDE 0.9% FLUSH 10 ML FLUSH IV FLUSH SCH (21:46)
[2018-05-09] MEDS: DONEPEZIL HCL 5 MG TAB PO SCH (21:46)
[2018-05-09] MEDS: METOPROLOL TARTRATE 25 MG TAB PO SCH (21:46)
[2018-05-10] VITALS (11 sets, daily range): BP systolic 144–166; BP diastolic 55–87; PULSE 67–90; RESP 16–18; TEMP 97.9–99.7; O2SAT 6–97
[2018-05-10] MEDS: RESP: ALBUTEROL 2.5 MG/IPRATROPIUM 0.5 MG NEB (SCH) NEB ×4 (03:51→21:59)
--- NOTE | 2018-05-10 04:33 | RADRPT ---
EXAM DATE: 05/10/2018 3:48 AM EDT AGE/SEX: 77 years / Male INDICATIONS: Shortness of breath, possible pulmonary disease. CLINICAL DATA: This is the patient's subsequent encounter. Patient reports that signs and symptoms h ave been present for 2 days and indicates a pain score of 10/10. MEDICAL/SURGICAL HISTORY: Cardiovascular disease. CABG. COMPARISON: [facility] [place], CHEST SINGLE AP, 05/09/2018. . FINDINGS: Right central line in superior vena cava. Central chest tube unchanged. Bilateral mostly basilar airs pace disease similar to May 09. No pneumothorax or significant effusion. Previous sternotomy. CONCLUSION: Mild basilar airspace disease. Right central line in superior vena cava. Electronically signed by: Ronak Frances MD 05/10/2018 4:32 AM EDT
[2018-05-10] MEDS: ACETAMINOPHEN 1000 MG/100 ML 100 ML IV SCH (04:38)
[2018-05-10] MEDS: PANTOPRAZOLE SOD 40 MG DELAYED RELEASE TAB PO SCH (04:38)
[2018-05-10 05:44] LABS: HEMATOCRIT 42.8 % (39.0-51.0); HEMOGLOBIN 14.8 GM/DL (13.0-17.0); MEAN CELL VOLUME 91.5 FL (80.0-100.0); MEAN CORPUSCULAR HEMOGLOBIN 31.6 PG (27.0-34.0); MEAN CORPUSCULAR HGB CONC 34.5 % (32.0-36.0); MEAN PLATELET VOLUME 8.8 FL (7.0-11.0); PLATELET COUNT 196 TH/MM3 (150-450); RED BLOOD COUNT 4.68 MIL/MM3 (4.50-5.90); RED CELL DISTRIBUTION WIDTH 14.2 % (11.6-17.2); WHITE BLOOD COUNT 14.1 TH/MM3 (4.0-11.0)
[2018-05-10 06:09] LABS: BICARBONATE 22.6 MEQ/L (21.0-32.0); CALCIUM 8.6 MG/DL (8.5-10.1); CREATININE 1.21 MG/DL (0.60-1.30); MAGNESIUM 1.9 MG/DL (1.5-2.5)
[2018-05-10] MEDS: SODIUM CHLORIDE 0.9% FLUSH 10 ML FLUSH IV FLUSH SCH ×2 (08:31→20:39)
--- NOTE | 2018-05-10 08:59 | PD.CAR.PN ---
CVT Progress Note Subjective/Hospital Course: 77/ male , hx of malignant melanoma , presented to his PCP with c/o of back pain and fatigue. He underwent imaging studies and was found to have a large anterior mediastinal mass other PMH: CAD, s/p PCI stent , DM, HTN, HLP dementia pt was electively admitted for surgery 05/09 surgery: Median sternotomy for resection anterior mediastinal mass 10 x 7 x 7 anterior mediastinal mass involving left pleura and adherent to left lung 05/10 Doing well. Somewhat confused this morning hemodynamically stable Maintain CT keep in ICU for today Objective: Vital Signs Date Time Temp Pulse Resp B/P (MAP) Pulse Ox O2 Delivery O2 Flow Rate FiO2 05/10/18 04:00 98.2 79 18 146/55 (85) 97 166/85 (112) 05/10/18 03:30 94 Nasal Cannula 5.00 05/10/18 03:00 67 05/09/18 23:30 94 Nasal Cannula 5.00 05/09/18 23:00 74 05/09/18 23:00 98.0 68 18 123/39 (67) 94 05/09/18 22:26 95 Nasal Cannula 5.00 05/09/18 20:00 98.0 90 18 124/53 (76) 94 156/67 (96) 05/09/18 19:45 94 Nasal Cannula 5.00 05/09/18 19:21 85 05/09/18 19:11 92 120/45 05/09/18 19:00 95 05/09/18 16:00 97.4 86 18 148/67 (94) 93 138/69 (92) 05/09/18 15:31 97.7 05/09/18 14:44 18 05/09/18 14:38 85 153/65 05/09/18 14:14 97.4 85 18 153/65 (94) 96 05/09/18 14:14 84 05/09/18 12:42 18 05/09/18 12:30 83 18 133/47 (75) 96 05/09/18 12:15 83 18 122/46 (71) 96 05/09/18 12:00 97.5 83 18 128/50 (76) 96 05/09/18 11:53 18 05/09/18 11:50 97.4 85 18 130/54 (79) 96 05/09/18 11:00 97.4 85 18 153/65 (94) 96 05/09/18 11:00 85 05/09/18 11:00 97.4 05/09/18 11:00 127/51 (76) 149/89 (109) 05/09/18 10:38 93 Simple Mask 10.00 05/09/18 10:37 97.4 85 18 153/65 (94) 96 Labs: Laboratory Tests Test 05/10/18 05:18 05/10/18 05:19 Nasal Screen MRSA (PCR) MRSA NOT DETECTED (NOT White Blood Count 14.1 TH/MM3 (4.0-11.0) Red Blood Count 4.68 MIL/MM3 (4.50-5.90) Hemoglobin 14.8 GM/DL (13.0-17.0) Hematocrit 42.8 % (39.0-51.0) Mean Corpuscular Volume 91.5 FL (80.0-100.0) Mean Corpuscular Hemoglobin 31.6 PG (27.0-34.0) Mean Corpuscular Hemoglobin Concent 34.5 % (32.0-36.0) Red Cell Distribution Width 14.2 % (11.6-17.2) Platelet Count 196 TH/MM3 (150-450) Mean Platelet Volume 8.8 FL (7.0-11.0) Blood Urea Nitrogen 15 MG/DL (7-18) Creatinine 1.21 MG/DL (0.60-1.30) Random Glucose 103 MG/DL (74-106) Calcium Level 8.6 MG/DL (8.5-10.1) Magnesium Level 1.9 MG/DL (1.5-2.5) Sodium Level 140 MEQ/L (136-145) Potassium Level 4.1 MEQ/L (3.5-5.1) Chloride Level 106 MEQ/L (98-107) Carbon Dioxide Level 22.6 MEQ/L (21.0-32.0) Anion Gap 11 MEQ/L (5-15) Estimat Glomerular Filtration Rate 58 ML/MIN (>89) Result Diagram: 05/10/1851805/10/18 0519 (1) median sternotomy (2) Mediastinal mass (3) Hx of coronary artery disease (4) Atypical chest pain (5) Hypertension (6) Dementia Fazal Aguirre MD 9, 2018 08:59
[2018-05-10] MEDS ORDERED: VITAMIN E 200 UNIT PO SCH ×2 (09:00)
[2018-05-10] MEDS ORDERED: NON-FORMULARY DRUG (Omega-3/Dha/Epa/Fish Oil (Fish Oil 1,000 mg Softgel) 1 CAP) PO SCH (09:00)
[2018-05-10] MEDS: MUPIROCIN 2% OINT 22 GM TUBE EACH NARE SCH ×2 (09:00→20:33)
[2018-05-10] MEDS: GLIMEPIRIDE 4 MG TAB PO SCH (09:07)
[2018-05-10] MEDS: DOXAZOSIN MESYLATE 4 MG TAB PO SCH (09:07)
[2018-05-10] MEDS: ATORVASTATIN 80 MG TAB PO SCH (09:08)
[2018-05-10] MEDS: ASPIRIN 81 MG CHEW TAB PO SCH (09:08)
[2018-05-10] MEDS: MULTIVITAMIN TAB PO SCH (09:08)
[2018-05-10] MEDS ORDERED: PNEUMOCOCCAL POLYVALENT INJ 25 MCG/0.5 ML SYR IM ONE (10:00)
[2018-05-10] MEDS ORDERED: DEXTROSE 50% IN WATER 50 ML VIAL(D50) IV PUSH PRN (10:15)
[2018-05-10] MEDS ORDERED: BISACODYL 10 MG SUPP RECTAL PRN (10:15)
[2018-05-10] MEDS ORDERED: SOD PHOSPHATE/SOD BIPHOSPHATE (ADULT) ENEMA 133ML RECTAL PRN (10:15)
[2018-05-10] MEDS ORDERED: GLUCAGON 1 MG/ML VIAL OTHER PRN (10:15)
[2018-05-10] MEDS: oxyCODONE/ACETAMINOPHEN 5 MG/325 MG TAB PO PRN ×4 (10:25→23:01)
[2018-05-10] MEDS: INSULIN ASPART SUPPLEMENTAL SCALE SQ SCH ×3 (14:05→21:21)
[2018-05-10] MEDS: ALPRAZolam 0.5 MG TAB PO PRN (19:32)
[2018-05-10] MEDS: DOCUSATE SODIUM 100 MG CAP PO SCH (20:38)
[2018-05-10] MEDS: SENNOSIDES 8.6 MG TAB PO SCH (20:38)
[2018-05-10] MEDS: METOPROLOL TARTRATE 25 MG TAB PO SCH (20:39)
[2018-05-10] MEDS: DONEPEZIL HCL 5 MG TAB PO SCH (20:39)
[2018-05-11] VITALS (15 sets, daily range): BP systolic 148–178; BP diastolic 73–98; PULSE 75–96; RESP 16–18; TEMP 97.9–99.3; O2SAT 92–94
[2018-05-11] MEDS: INSULIN ASPART SUPPLEMENTAL SCALE SQ SCH ×5 (02:00→20:32)
[2018-05-11] MEDS: oxyCODONE/ACETAMINOPHEN 5 MG/325 MG TAB PO PRN ×2 (03:37→12:02)
[2018-05-11] MEDS: PANTOPRAZOLE SOD 40 MG DELAYED RELEASE TAB PO SCH (05:54)
[2018-05-11 05:56] LABS: AUTOMATED NEUTROPHIL # 8.8 TH/MM3 (1.8-7.7); BASOPHIL # 0.1 TH/MM3 (0-0.2); BASOPHIL % 0.4 % (0.0-2.0); EOSINOPHIL # 0.1 TH/MM3 (0-0.4); EOSINOPHIL % 0.9 % (0.0-4.0); HEMATOCRIT 42.6 % (39.0-51.0); HEMOGLOBIN 14.8 GM/DL (13.0-17.0); LYMPH % 11.5 % (9.0-44.0); LYMPHOCYTE # 1.3 TH/MM3 (1.0-4.8); MEAN CELL VOLUME 91.6 FL (80.0-100.0); MEAN CORPUSCULAR HEMOGLOBIN 31.8 PG (27.0-34.0); MEAN CORPUSCULAR HGB CONC 34.7 % (32.0-36.0); MEAN PLATELET VOLUME 9.4 FL (7.0-11.0); MONO % 11.9 % (0.0-8.0); MONOCYTE # 1.4 TH/MM3 (0-0.9); NEUT % 75.3 % (16.0-70.0); PLATELET COUNT 181 TH/MM3 (150-450); RED BLOOD COUNT 4.65 MIL/MM3 (4.50-5.90); RED CELL DISTRIBUTION WIDTH 14.3 % (11.6-17.2); WHITE BLOOD COUNT 11.6 TH/MM3 (4.0-11.0)
[2018-05-11 06:10] LABS: BICARBONATE 26.6 MEQ/L (21.0-32.0); CALCIUM 8.7 MG/DL (8.5-10.1); CREATININE 1.35 MG/DL (0.60-1.30)
[2018-05-11] MEDS: LISINOPRIL 10 MG TAB PO SCH (09:00)
[2018-05-11] MEDS: GLIMEPIRIDE 4 MG TAB PO SCH (09:00)
[2018-05-11] MEDS: SODIUM CHLORIDE 0.9% FLUSH 10 ML FLUSH IV FLUSH SCH ×2 (09:00→20:32)
[2018-05-11] MEDS: DOCUSATE SODIUM 100 MG CAP PO SCH ×2 (09:00→20:40)
[2018-05-11] MEDS: POLYETHYLENE GLYCOL 17 GM PKG PO SCH (09:00)
[2018-05-11] MEDS: MULTIVITAMIN TAB PO SCH (09:00)
[2018-05-11] MEDS: ATORVASTATIN 80 MG TAB PO SCH (09:00)
[2018-05-11] MEDS: MAGNESIUM HYDROXIDE SUSP 30 ML CUP PO SCH (09:00)
[2018-05-11] MEDS: MUPIROCIN 2% OINT 22 GM TUBE EACH NARE SCH ×2 (09:00→20:40)
[2018-05-11] MEDS: ASPIRIN 81 MG CHEW TAB PO SCH (09:00)
[2018-05-11] MEDS: MULTIVITAMINS/MINERALS THERAPEUTIC TAB PO SCH (09:00)
--- NOTE | 2018-05-11 09:11 | PD.CAR.PN ---
CVT Progress Note Subjective/Hospital Course: 77/ male , hx of malignant melanoma , presented to his PCP with c/o of back pain and fatigue. He underwent imaging studies and was found to have a large anterior mediastinal mass other PMH: CAD, s/p PCI stent , DM, HTN, HLP dementia pt was electively admitted for surgery 05/09 surgery: Median sternotomy for resection anterior mediastinal mass 10 x 7 x 7 anterior mediastinal mass involving left pleura and adherent to left lung 05/10 Doing well. Somewhat confused this morning hemodynamically stable Maintain CT keep in ICU for today 05/11 Remains confused but appropriate Remove CT today Transfer CPCU Objective: Vital Signs Date Time Temp Pulse Resp B/P (MAP) Pulse Ox O2 Delivery O2 Flow Rate FiO2 05/11/18 03:00 98.5 88 18 177/98 (124) 93 05/11/18 03:00 92 05/11/18 03:00 93 Nasal Cannula 3.00 05/10/18 23:00 93 Nasal Cannula 3.00 05/10/18 23:00 83 05/10/18 23:00 97.9 77 18 154/87 (109) 93 05/10/18 21:59 93 Nasal Cannula 3.00 05/10/18 19:00 88 05/10/18 19:00 99.6 86 18 151/81 (104) 93 Arterial Line 05/10/18 19:00 93 Nasal Cannula 3.00 05/10/18 17:00 16 05/10/18 16:00 89 05/10/18 16:00 93 Nasal Cannula 3.00 05/10/18 16:00 99.7 78 16 144/67 (92) 93 05/10/18 14:34 95 Nasal Cannula 3.00 05/10/18 14:32 95 Nasal Cannula 4.00 05/10/18 11:00 96 Nasal Cannula 3.00 05/10/18 11:00 98.1 82 16 149/58 (88) 6 05/10/18 11:00 82 05/10/18 10:12 95 Nasal Cannula 5.00 Labs: Laboratory Tests Test 05/11/18 05:08 White Blood Count 11.6 TH/MM3 (4.0-11.0) Red Blood Count 4.65 MIL/MM3 (4.50-5.90) Hemoglobin 14.8 GM/DL (13.0-17.0) Hematocrit 42.6 % (39.0-51.0) Mean Corpuscular Volume 91.6 FL (80.0-100.0) Mean Corpuscular Hemoglobin 31.8 PG (27.0-34.0) Mean Corpuscular Hemoglobin Concent 34.7 % (32.0-36.0) Red Cell Distribution Width 14.3 % (11.6-17.2) Platelet Count 181 TH/MM3 (150-450) Mean Platelet Volume 9.4 FL (7.0-11.0) Neutrophils (%) (Auto) 75.3 % (16.0-70.0) Lymphocytes (%) (Auto) 11.5 % (9.0-44.0) Monocytes (%) (Auto) 11.9 % (0.0-8.0) Eosinophils (%) (Auto) 0.9 % (0.0-4.0) Basophils (%) (Auto) 0.4 % (0.0-2.0) Neutrophils # (Auto) 8.8 TH/MM3 (1.8-7.7) Lymphocytes # (Auto) 1.3 TH/MM3 (1.0-4.8) Monocytes # (Auto) 1.4 TH/MM3 (0-0.9) Eosinophils # (Auto) 0.1 TH/MM3 (0-0.4) Basophils # (Auto) 0.1 TH/MM3 (0-0.2) CBC Comment DIFF FINAL Differential Comment Blood Urea Nitrogen 15 MG/DL (7-18) Creatinine 1.35 MG/DL (0.60-1.30) Random Glucose 139 MG/DL (74-106) Calcium Level 8.7 MG/DL (8.5-10.1) Magnesium Level 2.0 MG/DL (1.5-2.5) Sodium Level 141 MEQ/L (136-145) Potassium Level 4.2 MEQ/L (3.5-5.1) Chloride Level 106 MEQ/L (98-107) Carbon Dioxide Level 26.6 MEQ/L (21.0-32.0) Anion Gap 8 MEQ/L (5-15) Estimat Glomerular Filtration Rate 51 ML/MIN (>89) Result Diagram: 05/11/18 0508 05/11/18 0508 (1) median sternotomy (2) Mediastinal mass (3) Hx of coronary artery disease (4) Atypical chest pain (5) Hypertension (6) Dementia Fazal Aguirre MD May 11, 2018 09:11
[2018-05-11] MEDS: RESP: ALBUTEROL 2.5 MG/IPRATROPIUM 0.5 MG NEB (SCH) NEB ×3 (10:08→20:07)
[2018-05-11] MEDS: DOXAZOSIN MESYLATE 4 MG TAB PO SCH (12:03)
[2018-05-11] MEDS: ALPRAZolam 0.5 MG TAB PO PRN ×2 (12:18→20:40)
--- NOTE | 2018-05-11 15:14 | EKG ---
Date Performed: 05/10/2018 Time Performed: 05:11:56 PTAGE: 77 years EKG: Sinus rhythm with PVC(s) Septal T wave changes are nonspecific Borderline ECG PREVIOUS TRACING : 05/06/2018 11.34 Since the previous tracing, no significant change noted DOCTOR: Cezar Tracy Interpretating Date/Time 05/11/2018 15:11:53
[2018-05-11] MEDS: ACETAMINOPHEN 325 MG TAB PO PRN (20:39)
[2018-05-11] MEDS: DONEPEZIL HCL 5 MG TAB PO SCH (20:39)
[2018-05-11] MEDS: METOPROLOL TARTRATE 25 MG TAB PO SCH (20:40)
[2018-05-11] MEDS: SENNOSIDES 8.6 MG TAB PO SCH (20:40)
[2018-05-12] VITALS (23 sets, daily range): BP systolic 76–154; BP diastolic 46–90; PULSE 67–114; RESP 18–24; TEMP 98–99.8; O2SAT 92–96
[2018-05-12] MEDS: PANTOPRAZOLE SOD 40 MG DELAYED RELEASE TAB PO SCH (05:34)
[2018-05-12] MEDS: RESP: ALBUTEROL 2.5 MG/IPRATROPIUM 0.5 MG NEB (SCH) NEB (08:29)
[2018-05-12] MEDS: POLYETHYLENE GLYCOL 17 GM PKG PO SCH (09:27)
[2018-05-12] MEDS: MAGNESIUM HYDROXIDE SUSP 30 ML CUP PO SCH (09:27)
[2018-05-12] MEDS: ATORVASTATIN 80 MG TAB PO SCH (09:28)
[2018-05-12] MEDS: ASPIRIN 81 MG CHEW TAB PO SCH (09:28)
[2018-05-12] MEDS: DOCUSATE SODIUM 100 MG CAP PO SCH ×2 (09:28→21:00)
[2018-05-12] MEDS: INSULIN ASPART SUPPLEMENTAL SCALE SQ SCH ×4 (09:29→21:00)
[2018-05-12] MEDS: LISINOPRIL 10 MG TAB PO SCH (09:29)
[2018-05-12] MEDS: GLIMEPIRIDE 4 MG TAB PO SCH (09:29)
[2018-05-12] MEDS: ACETAMINOPHEN 325 MG TAB PO PRN (09:29)
[2018-05-12] MEDS: DOXAZOSIN MESYLATE 4 MG TAB PO SCH (09:29)
[2018-05-12] MEDS: MULTIVITAMINS/MINERALS THERAPEUTIC TAB PO SCH (09:30)
[2018-05-12] MEDS: MUPIROCIN 2% OINT 22 GM TUBE EACH NARE SCH ×2 (09:30→21:00)
[2018-05-12] MEDS: SODIUM CHLORIDE 0.9% FLUSH 10 ML FLUSH IV FLUSH SCH ×2 (09:30→21:05)
[2018-05-12] MEDS: MULTIVITAMIN TAB PO SCH (09:31)
[2018-05-12] MEDS: METOPROLOL TARTRATE 25 MG TAB PO SCH ×2 (11:30→21:00)
--- NOTE | 2018-05-12 16:38 | PD.CAR.PN ---
CVT Progress Note Subjective/Hospital Course: 77/ male , hx of malignant melanoma , presented to his PCP with c/o of back pain and fatigue. He underwent imaging studies and was found to have a large anterior mediastinal mass other PMH: CAD, s/p PCI stent , DM, HTN, HLP dementia pt was electively admitted for surgery 05/09 surgery: Median sternotomy for resection anterior mediastinal mass 10 x 7 x 7 anterior mediastinal mass involving left pleura and adherent to left lung 05/10 Doing well. Somewhat confused this morning hemodynamically stable Maintain CT keep in ICU for today 05/11 Remains confused but appropriate Remove CT today Transfer CPCU 05/12 some confusion , but improved onur dc xanax, no narcotics BP on lower side today / improve after fluid bolus dc lisinopril/ BB with holding parameters Objective: GENERAL: A&O x 3 SKIN: Warm and dry. prevena dressing to chest HEAD: Normocephalic. EYES: No scleral icterus. No injection or drainage. NECK: Supple, trachea midline. No JVD or lymphadenopathy. CARDIOVASCULAR: Regular rate and rhythm without murmurs, gallops, or rubs. RESPIRATORY: Breath sounds equal bilaterally. No accessory muscle use. diminishjed in bases GASTROINTESTINAL: Abdomen soft, non-tender, nondistended. MUSCULOSKELETAL: No cyanosis, or edema. BACK: Nontender without obvious deformity. No CVA tenderness. Vital Signs Date Time Temp Pulse Resp B/P (MAP) Pulse Ox O2 Delivery O2 Flow Rate FiO2 05/12/18 16:00 83 05/12/18 15:00 93 Nasal Cannula 2.00 05/12/18 15:00 67 05/12/18 15:00 98.4 67 22 112/64 (80) 93 05/12/18 14:00 77 05/12/18 13:00 78 05/12/18 12:00 82 05/12/18 11:00 84 05/12/18 11:00 93 Nasal Cannula 2.00 05/12/18 11:00 98.6 84 24 76/46 (56) 93 05/12/18 10:00 104 05/12/18 09:00 114 05/12/18 08:32 93 Nasal Cannula 2.00 05/12/18 08:00 98 05/12/18 08:00 98.0 86 24 154/80 (104) 96 05/12/18 07:00 96 Nasal Cannula 2.00 05/12/18 07:00 86 05/12/18 06:00 80 05/12/18 05:00 85 05/12/18 03:00 85 05/12/18 03:00 93 Nasal Cannula 3.00 05/12/18 03:00 98.3 85 18 147/81 (103) 95 05/12/18 01:00 76 05/11/18 23:00 98.3 76 18 161/76 (104) 93 05/11/18 23:00 93 Nasal Cannula 3.00 05/11/18 23:00 76 05/11/18 22:00 80 05/11/18 20:13 93 3.00 05/11/18 20:00 96 05/11/18 19:00 96 05/11/18 19:00 92 Nasal Cannula 3.00 05/11/18 19:00 98.3 96 18 148/81 (103) 92 05/11/18 18:00 96 05/11/18 17:00 88 Result Diagram: 05/11/18 0508 05/11/18 0508 (1) median sternotomy (2) Mediastinal mass Plan: path pending (3) Hx of coronary artery disease (4) Atypical chest pain (5) Hypertension Plan: BP labile, lisinopril dc fluid bolus given BB with holding parameter (6) Dementia Plan: continue aricept/ dc xanax, no narcotics Yasmine Ventura May 12, 2018 16:38
[2018-05-12] MEDS ORDERED: HOSP BED1 (16:47)
[2018-05-12] MEDS: SENNOSIDES 8.6 MG TAB PO SCH (21:00)
[2018-05-12] MEDS: DONEPEZIL HCL 5 MG TAB PO SCH (21:04)
[2018-05-13] VITALS (17 sets, daily range): BP systolic 117–164; BP diastolic 66–85; PULSE 70–92; RESP 16–22; TEMP 97.9–98.3; O2SAT 93–95
[2018-05-13] MEDS: INSULIN ASPART SUPPLEMENTAL SCALE SQ SCH ×3 (08:00→17:00)
[2018-05-13] MEDS: DOCUSATE SODIUM 100 MG CAP PO SCH (09:34)
[2018-05-13] MEDS: MULTIVITAMIN TAB PO SCH (09:34)
[2018-05-13] MEDS: DOXAZOSIN MESYLATE 4 MG TAB PO SCH (09:34)
[2018-05-13] MEDS: METOPROLOL TARTRATE 25 MG TAB PO SCH (09:34)
[2018-05-13] MEDS: GLIMEPIRIDE 4 MG TAB PO SCH (09:34)
[2018-05-13] MEDS: ASPIRIN 81 MG CHEW TAB PO SCH (09:35)
[2018-05-13] MEDS: MAGNESIUM HYDROXIDE SUSP 30 ML CUP PO SCH (09:35)
[2018-05-13] MEDS: POLYETHYLENE GLYCOL 17 GM PKG PO SCH (09:35)
[2018-05-13] MEDS: ATORVASTATIN 80 MG TAB PO SCH (09:35)
[2018-05-13] MEDS: SODIUM CHLORIDE 0.9% FLUSH 10 ML FLUSH IV FLUSH SCH (09:35)
[2018-05-13] MEDS ORDERED: COMMODE 3-IN-11 MIS (10:19)
[2018-05-13] MEDS ORDERED: WALKER WHEELS/F1 MIS (10:19)
[2018-05-13] MEDS ORDERED: TYLE325T PO (14:48)
[2018-05-13] MEDS ORDERED: DOCU1CAP39 PO (14:48)
[2018-05-13] MEDS ORDERED: ASPI81 PO (14:48)
[2018-05-13] MEDS ORDERED: OXYGENDME NAS.CANULA (14:53)
--- NOTE | 2018-05-13 14:59 | HHI.DS ---
Discharge Summary Admission Date May 09, 2018 at 05:31 Discharge Date: May 13, 2018 Admitting Diagnosis mediastinal mass (1) median sternotomy Diagnosis: Secondary (2) Hypoxemia Diagnosis: Principal ICD Codes: R09.02 - Hypoxemia (3) Hx of coronary artery disease Diagnosis: Principal ICD Codes: Z86.79 - Personal history of other diseases of the circulatory system Status: Acute (4) Mediastinal mass Diagnosis: Principal ICD Codes: J98.59 - Other diseases of mediastinum, not elsewhere classified (5) Dementia Diagnosis: Principal ICD Codes: F03.90 - Unspecified dementia without behavioral disturbance Procedures 05/09 Median sternotomy for resection anterior mediastinal mass Brief History 77/ male , hx of malignant melanoma , presented to his PCP with c/o of back pain and fatigue. He underwent imaging studies and was found to have a large anterior mediastinal mass other PMH: CAD, s/p PCI stent , DM, HTN, HLP dementia pt was electively admitted for surgery CBC/BMP: 05/11/18 0508 05/11/18 0508 Significant Findings Laboratory Tests Test 05/11/18 05:08 White Blood Count 11.6 TH/MM3 (4.0-11.0) Neutrophils (%) (Auto) 75.3 % (16.0-70.0) Monocytes (%) (Auto) 11.9 % (0.0-8.0) Neutrophils # (Auto) 8.8 TH/MM3 (1.8-7.7) Monocytes # (Auto) 1.4 TH/MM3 (0-0.9) Creatinine 1.35 MG/DL (0.60-1.30) Random Glucose 139 MG/DL (74-106) Estimat Glomerular Filtration Rate 51 ML/MIN (>89) Imaging Last Impressions Chest X-Ray 05/10/18 0500 Signed Impressions: CONCLUSION: Mild basilar airspace disease. Right central line in superior vena cava. PE at Discharge GENERAL: awake, pleasantly confused at times, forgetful SKIN: Warm and dry. Sternal incision intact and well approximated very dry scaly skin HEAD: Normocephalic. EYES: No scleral icterus. No injection or drainage. NECK: Supple, trachea midline. No JVD or lymphadenopathy. CARDIOVASCULAR: Regular rate and rhythm without murmurs, gallops, or rubs. RESPIRATORY: Breath sounds equal bilaterally. No accessory muscle use. GASTROINTESTINAL: Abdomen soft, non-tender, nondistended. MUSCULOSKELETAL: No cyanosis, or edema. BACK: Nontender without obvious deformity. No CVA tenderness. Hospital Course 05/09 surgery: Median sternotomy for resection anterior mediastinal mass 10 x 7 x 7 anterior mediastinal mass involving left pleura and adherent to left lung 05/10 Doing well. Somewhat confused this morning hemodynamically stable Maintain CT keep in ICU for today 05/11 Remains confused but appropriate Remove CT today Transfer CPCU 05/12 some confusion , but improved onur dc xanax, no narcotics BP on lower side today / improve after fluid bolus dc lisinopril/ BB with holding parameters 05/13 Bp improved, stable for discharge, will continue to hold DANETTE no narcotics / prn tylenol for pain will need 3 liters nasal cannula / PT path still pending Pt Condition on Discharge: Good Discharge Disposition: ACLF/INTERMEDIATE Discharge Instructions DIET: Follow Instructions for: Heart Healthy Diet Activities you can perform: Full Weight Bearing, Shower Only-No Bath Activities to avoid: Strenuous Activity, Driving Additional Activity Instructio: no lifting > 8 lbs or gallon of milk New Medications: Acetaminophen (Tylenol) 325 Mg Tab 650 MG PO Q6H PRN for PAIN SCALE 1 TO 5, #30 TAB 0 Refills Commode 3-in-1 (Commode 3-in-1) 1 Mis Mis EA .XX DIRECTED, #1 0 Refills Hospital Bed - Electric (Hospital Bed - Electric) 1 Ea Ea EA .XX DIRECTED, #1 Oxygen (O2) (Oxygen (O2)) Device LITER JAMIE.CANULA CONTINUOUS for Prevent Hypoxemia, #3 Oxygen Concentrator Portable Gaseous 2 L/min via Nasal Canula Continuous For 99 months Walker with Front Wheels (Walker with Front Wheels) 1 Mis Mis EA .XX DIRECTED, #1 0 Refills Aspirin (Tgt Aspirin) 81 Mg Chw 81 MG PO DAILY for Blood Clot Prevention, #30 EA 2 Refills Docusate Sodium (Dok) 100 Mg Cap 100 MG PO BID for Constipation, #60 CAP 0 Refills Continued Medications: Calcium Carbonate-Cholecalciferol (Calcium 600 with Vitamin D) 600-400 mg-Unit Tab 1 TAB PO DAILY for Calcium Supplement, TAB 0 Refills Donepezil (Donepezil) 10 Mg Tab 10 MG PO HS for Dementia, #30 TAB 0 Refills Doxazosin (Doxazosin) 8 Mg Tab 8 MG PO DAILY, #30 TAB 0 Refills Glimepiride (Glimepiride) 4 Mg Tab 4 MG PO DAILY for Blood Sugar Management, #30 TAB 0 Refills Take with breakfast or first main meal Metoprolol Tartrate (Metoprolol Tartrate) 25 Mg Tab 25 MG PO HS, #30 TAB 0 Refills Multiple Vitamin (Multiple Vitamin) 1 Tab 1 TAB PO DAILY for Nutritional Supplement, TAB 0 Refills Wilmar-3/Dha/Epa/Fish Oil (Fish Oil 1,000 mg Softgel) 1,000 Mg (120 Mg-180 Mg) Capsule 1 CAP PO DAILY Rosuvastatin (Crestor) 40 Mg Tab 40 MG PO DAILY for Cholesterol Management, #30 TAB 0 Refills Vitamin E (Vitamin E) 200 Unit Cap 200 UNITS PO DAILY for Nutritional Supplement, CAP 0 Refills Discontinued Medications: Lisinopril (Lisinopril) 10 Mg Tab 10 MG PO DAILY, #30 TAB 0 Refills Yasmine Ventura May 13, 2018 14:59
== END 2018-05-13 19:40 | DRG 168 ==
LOC: EDSTATUS 07:30 → HSDI 05-09 05:31 → EDSTATUS 05-09 07:30 → HCVI 05-09 10:38 → HCPC 05-11 13:00
PROVIDERS: ADMIT Thoracic Surgery (Cardiothoracic Vascular Surgery); ATTEND Thoracic Surgery (Cardiothoracic Vascular Surgery)
PROC: 0WBC0ZX Excision of Mediastinum, Open Approach, Diagnostic (ICD-10-PCS; principal; 2018-05-09 07:16)
DX: J98.59 Other diseases of mediastinum, not elsewhere classified (principal); F03.90 Unspecified dementia, unspecified severity, without behavioral disturbance, psychotic disturbance, mood disturbance, and anxiety; E11.9 Type 2 diabetes mellitus without complications; E78.5 Hyperlipidemia, unspecified; I10 Essential (primary) hypertension; I25.10 Atherosclerotic heart disease of native coronary artery without angina pectoris; R09.02 Hypoxemia; Z85.820 Personal history of malignant melanoma of skin; Z95.5 Presence of coronary angioplasty implant and graft; Z79.84 Long term (current) use of oral hypoglycemic drugs; I44.0 Atrioventricular block, first degree
CPT/HCPCS: 36430; 71045; 76937; 80048; 82948; 83735; 85014; 85025; 85027; 86850; 86900; 86901; 86920; 87641; 88305; 88307; 88341; 88342; 93005; 94150; 94618; 94640; 94664; 94667; 94668; C9248; J0131; J0330; J0690; J1100; J1644; J1815; J1817; J2250; J2370; J2405; J2930; J3010; J3370; J3475; J3480; J7120; P9016

== ENCOUNTER → 2018-05-06 | Outpatient (CLI) | payer MEDICARE ==
[~2018-05-06] MED LIST changes: +ASPI81 PO; +CALC1TAB87 PO; +COMMODE 3-IN-11 MIS; +DOCU1CAP39 PO; +DONE10TA7 PO; +DONE5TAB7 PO; +HOSP BED1; +LISI-519 PO; +LISI10TA3 PO; +METO25TA3 PO; +OMEG100046 PO; +OXYGENDME NAS.CANULA; +TYLE325T PO; +WALKER WHEELS/F1 MIS
[2018-05-06 12:02] LABS: AUTOMATED NEUTROPHIL # 4.6 TH/MM3 (1.8-7.7); BASOPHIL # 0.1 TH/MM3 (0-0.2); BASOPHIL % 0.7 % (0.0-2.0); EOSINOPHIL # 0.2 TH/MM3 (0-0.4); EOSINOPHIL % 3.1 % (0.0-4.0); HEMATOCRIT 49.8 % (39.0-51.0); LYMPH % 26.1 % (9.0-44.0); MEAN CELL VOLUME 91.3 FL (80.0-100.0); MEAN CORPUSCULAR HEMOGLOBIN 31.3 PG (27.0-34.0); MEAN CORPUSCULAR HGB CONC 34.2 % (32.0-36.0); MONO % 9.4 % (0.0-8.0); MONOCYTE # 0.7 TH/MM3 (0-0.9); NEUT % 60.7 % (16.0-70.0); PLATELET COUNT 211 TH/MM3 (150-450); RED BLOOD COUNT 5.45 MIL/MM3 (4.50-5.90); WHITE BLOOD COUNT 7.6 TH/MM3 (4.0-11.0)
[2018-05-06 12:24] LABS: INTERNATIONAL NORMALIZED RATIO 1.1 RATIO; PROTHROMBIN TIME - PATIENT 10.8 SEC (9.8-11.6)
[2018-05-06 12:32] LABS: BICARBONATE 24.1 MEQ/L (21.0-32.0); CALCIUM 9.4 MG/DL (8.5-10.1); CREATININE 1.39 MG/DL (0.60-1.30)
[2018-05-06 12:53] LABS: BILIRUBIN, URINE NEG (NEG); BLOOD, URINE NEG (NEG); GLUCOSE,URINE NEG (NEG); KETONE, URINE NEG (NEG); MUCUS URINE FEW /lpf (OCC); NITRITE,URINE NEG (NEG); URINE COLOR YELLOW (YELLW/STRAW); URINE LEUKOCYTE ESTERASE NEG (NEG)
--- NOTE | 2018-05-06 16:22 | RADRPT ---
EXAM DATE: 05/06/2018 12:53 PM EDT AGE/SEX: 77 years / Male INDICATIONS: Evaluate for pneumonia, pneumothorax or communicable disease. Pre op mediastinotomy. CLINICAL DATA: This is the patient's initial encounter. Patient reports that signs and symptoms have been present for 1 day and indicates a pain score of 0/10. MEDICAL/SURGICAL HISTORY: Hypertension. Diabetes mellitus type II. melanoma Coronary artery s tent. COMPARISON: No prior [facility] exams available for comparison. FINDINGS: The patient has a known left upper lobe mass. Heart and mediastinum are unremarkable. Bones are unrem arkable. Small calcified granuloma right upper lobe and right midlung zone CONCLUSION: Left upper lobe lung mass anteriorly Electronically signed by: Rodolfo Wharton MD 05/06/2018 4:21 PM EDT
--- NOTE | 2018-05-06 17:15 | EKG ---
Date Performed: 05/06/2018 Time Performed: 11:34:23 PTAGE: 77 years EKG: Sinus rhythm WITH FIRST DEGREE AV BLOCK NONSPECIFIC T-WAVE ABNORMALITY ABNORMAL ECG PREVIOUS TRACING : 01/08/2017 10.40 Since the previous tracing, no significant change noted DOCTOR: Nafisa Velásquez Interpretating Date/Time 05/06/2018 17:15:17
== END ==
LOC: CPRE 11:13
PROVIDERS: ATTEND Thoracic Surgery (Cardiothoracic Vascular Surgery)
DX: Z01.812 Encounter for preprocedural laboratory examination (principal); Z01.811 Encounter for preprocedural respiratory examination; Z01.810 Encounter for preprocedural cardiovascular examination; J98.59 Other diseases of mediastinum, not elsewhere classified; I44.0 Atrioventricular block, first degree
CPT/HCPCS: 36415; 71046; 80048; 81001; 85025; 85610; 85730; 87640; 87641; 93005